=== PATIENT | female | born 1955 | race American Indian/Alaskan Native ===

== ENCOUNTER 2018-10-03 08:20 | Emergency (ER) | payer SELFPAY ==
--- NOTE | 2018-10-03 10:10 | Emergency Department Report ---
ED General Adult HPI - General Chief complaint: Skin Rash Stated complaint: PAIN IN BACK/SHOULDERS/ANKLES Time Seen by Provider: 10/03/18 09:55 Source: patient Mode of arrival: Ambulatory Limitations: No Limitations - History of Present Illness Initial comments: Patient is 63 years old female with history of psoriasis. Patient presented to the ER complaining of generalized joint pain for the last 2-3 days. Patient stated that she is not on any medication now because he does not have a primary care physician and because she does not have insurance. Patient denied any fever, chest pain, shortness of breath, nausea or vomiting. She also denied any headache, neck pain, weakness numbness or tingling sensation. - Related Data Allergies Allergy/AdvReac Type Severity Reaction Status Date / Time No Known Allergies Allergy Unverified 10/03/18 08:30 ED Review of Systems ROS: Stated complaint: PAIN IN BACK/SHOULDERS/ANKLES Other details as noted in HPI Comment: All other systems reviewed and negative Constitutional: denies: chills, fever Respiratory: denies: cough, orthopnea, shortness of breath, SOB with exertion, SOB at rest, wheezing Cardiovascular: denies: chest pain, palpitations Gastrointestinal: denies: abdominal pain, nausea, vomiting, diarrhea, constipation, hematemesis, melena, hematochezia Genitourinary: denies: urgency, dysuria, frequency, hematuria, discharge, abnormal menses Musculoskeletal: arthralgia Neurological: denies: headache, weakness, numbness, paresthesias, confusion, abnormal gait ED Past Medical Hx - Past Medical History Previous Medical History?: Yes Hx Psychiatric Treatment: Yes (anxiety) Additional medical history: Hepatitis C. Psoriasis - Surgical History Past Surgical History?: No - Social History Smoking Status: Never Smoker Substance Use Type: None ED Physical Exam - General Limitations: No Limitations General appearance: alert, in no apparent distress - Head Head exam: Present: atraumatic, normocephalic, normal inspection - Eye Eye exam: Present: normal appearance - ENT ENT exam: Present: normal exam, normal orophraynx, mucous membranes moist - Neck Neck exam: Present: normal inspection, full ROM. Absent: tenderness, meningismus, lymphadenopathy, thyromegaly - Respiratory Respiratory exam: Present: normal lung sounds bilaterally, prolonged expiratory. Absent: respiratory distress, wheezes, rales, rhonchi, stridor, chest wall tenderness, accessory muscle use, decreased breath sounds - Cardiovascular Cardiovascular Exam: Present: regular rate, normal rhythm, normal heart sounds - GI/Abdominal GI/Abdominal exam: Present: soft, normal bowel sounds. Absent: distended, tenderness, guarding, rebound, rigid, organomegaly, mass, bruit, pulsatile mass, hernia - Extremities Exam Extremities exam: Present: normal inspection, full ROM, normal capillary refill - Back Exam Back exam: Present: normal inspection - Neurological Exam Neurological exam: Present: alert, oriented X3, CN II-XII intact, normal gait, reflexes normal - Skin Skin exam: Present: warm, intact, rash ED Course Vital Signs 10/03/18 08:26 Temperature 97.5 F L Pulse Rate 74 Respiratory 20 Rate Blood Pressure 162/108 O2 Sat by Pulse 100 Oximetry Critical care attestation.: If time is entered above; I have spent that time in minutes in the direct care of this critically ill patient, excluding procedure time. ED Disposition Clinical Impression: Acute arthritis, Psoriasis Disposition: - TO HOME OR SELFCARE Is pt being admited?: No Condition: Stable Instructions: Psoriasis (ED), Arthralgia (ED) Referrals: [facility] [Provider Group] - 3-5 Days
[2018-10-03] MEDS ORDERED: TORADOL IM ONE (10:12)
[2018-10-03 10:35] VITALS: BP 131/75
== END 2018-10-03 10:33 | disposition home or self-care (01) ==
LOC: ED 08:20
DX: L40.9 Psoriasis, unspecified (principal); M19.90 Unspecified osteoarthritis, unspecified site; F41.9 Anxiety disorder, unspecified
CPT/HCPCS: 96372; 99282; J1885

== ENCOUNTER 2019-04-22 05:48 | Observation (INO) | payer SELFPAY ==
[2019-04-22] MEDS ORDERED: CATAPRES PO ONE (06:42)
[2019-04-22] MEDS ORDERED: NITRO-BID 2% TP ONE (06:42)
[2019-04-22] MEDS ORDERED: ASPIRIN PO ONE (06:42)
[2019-04-22 06:45] LABS: Basophils % (Auto) 0.8 % (0.0-1.8); Eosinophils # (Auto) 0.2 K/mm3 (0.0-0.4); Eosinophils % (Auto) 4.8 % (0.0-4.3); Hematocrit 40.4 % (30.3-42.9); Hemoglobin 13.3 gm/dl (10.1-14.3); Lymphocytes # (Auto) 2.3 K/mm3 (1.2-5.4); Lymphocytes % (Auto) 48.6 % (13.4-35.0); Mean Corpuscular HGB Conc 33 % (30-34); Mean Corpuscular Volume 81 fl (79-97); Monocytes # (Auto) 0.5 K/mm3 (0.0-0.8); Monocytes % (Auto) 10.8 % (0.0-7.3); Platelet Count 254 K/mm3 (140-440); Red Cell Distribution Width 13.3 % (13.2-15.2)
--- NOTE | 2019-04-22 06:47 | Emergency Department Report ---
HPI - General Chief Complaint: Dyspnea/Respdistress Time Seen by Provider: 04/22/19 06:34 - HPI HPI: Room 22 The patient is a 64-year-old female presenting with a chief complaint of chest discomfort. The patient states this morning at 03:00 she is awake and at rest when she began feeling dizzy A [place]o palpitations and left-sided chest discomfort described as a dull pressure that was intermittent in nature. Patient states she exhibited nausea/vomiting and shortness of breath with her chest discomfort but denies diaphoresis. The patient states she's been out of her blood pressure medication for approximately 3 weeks. The patient states she's never had a stress test or cardiac catheterization Location: [See above] Duration: [See above] Quality: [See above] Severity: [See above] Modifying factors: [see above] Context: [see above] Mode of transportation: [not driving] ED Past Medical Hx - Past Medical History Previous Medical History?: Yes Hx Hypertension: Yes Hx Diabetes: Yes Hx Psychiatric Treatment: Yes (anxiety) Additional medical history: Hepatitis C. Psoriasis - Surgical History Past Surgical History?: No - Family History Family history: no significant - Social History Smoking Status: Former Smoker (none 10 years) Substance Use Type: None (denies illicit drug use) - Medications Home Medications: Home Medications Medication Instructions Recorded Confirmed Last Taken Type Ondansetron [Zofran Odt] 4 mg PO Q8HR PRN #14 tab.rapdis 10/03/18 Unknown Rx Prednisone [predniSONE 10 mg 10 mg PO .TAPER #1 tab.ds.pk 10/03/18 Unknown Rx (6-Day Pack, 21 Tabs)] traMADol [Ultram 50 MG tab] 50 mg PO Q4HR PRN #14 tablet 10/03/18 Unknown Rx ED Review of Systems ROS: Stated complaint: SOB, NAUSEA, RAPID HEARTBEAT Other details as noted in HPI Constitutional: denies: diaphoresis Eyes: denies: eye pain ENT: denies: throat pain Respiratory: shortness of breath Cardiovascular: chest pain, palpitations Endocrine: no symptoms reported Gastrointestinal: nausea, vomiting Genitourinary: denies: dysuria Musculoskeletal: denies: back pain Neurological: denies: headache Physical Exam - Physical Exam Vital Signs: Vital Signs 04/22/19 06:02 Temperature 97.7 F Pulse Rate 83 Respiratory 18 Rate Blood Pressure 190/101 O2 Sat by Pulse 100 Oximetry Physical Exam: GENERAL: The patient is well-developed well-nourished female lying on stretcher not appearing to be in acute distress. [] HEENT: Normocephalic. Atraumatic. Extraocular motions are intact. Patient has moist mucous membranes. NECK: Supple. Trachea midline CHEST/LUNGS: Clear to auscultation. There is no respiratory distress noted. HEART/CARDIOVASCULAR: Regular. There is no tachycardia. There is no gallop rub or murmur. ABDOMEN: Abdomen is soft, nontender. Patient has normal bowel sounds. There is no abdominal distention. SKIN: There is no rash. There is no edema. There is no diaphoresis. NEURO: The patient is awake, alert, and oriented. The patient is cooperative. The patient has normal speech MUSCULOSKELETAL: There is no evidence of acute injury. ED Course Vital Signs 04/22/19 06:02 Temperature 97.7 F Pulse Rate 83 Respiratory 18 Rate Blood Pressure 190/101 O2 Sat by Pulse 100 Oximetry ED Medical Decision Making - Lab Data Result diagrams: 04/22/19 06:29 04/22/19 06:29 Laboratory Tests 04/22/19 04/22/19 04/22/19 06:29 06:29 06:37 WBC 4.7 RBC 5.00 Hgb 13.3 Hct 40.4 MCV 81 MCH 27 L MCHC 33 RDW 13.3 Plt Count 254 Lymph % (Auto) 48.6 H Dixon % (Auto) 10.8 H Eos % (Auto) 4.8 H Baso % (Auto) 0.8 Lymph # 2.3 Dixon # 0.5 Eos # 0.2 Baso # 0.0 Seg Neutrophils % 35.0 L Seg Neutrophils # 1.6 L VBG pH 7.391 Sodium 138 Potassium 3.5 L Chloride 102.0 Carbon Dioxide 27 Anion Gap 13 BUN 12 Creatinine 0.6 L Estimated GFR > 60 BUN/Creatinine Ratio 20 Glucose 104 H Calcium 9.6 Troponin T < 0.010 - EKG Data -: EKG Interpreted by Me EKG shows normal: sinus rhythm Rate: normal - EKG Data When compared to previous EKG there are: previous EKG unavailable Interpretation: nonspecific ST-T wave camron (T-wave inversion in lead V2, flattened T-wave in lead aVL) - Radiology Data Radiology results: report reviewed (chest x-ray), image reviewed (chest x-ray) interpreted by me: Chest x-ray-no focal infiltrates, no pneumothorax [facility] [address] [place] [address] XRay Report Signed Patient: JACEK RYAN MR#: [id number] : 1954 Acct:[id number] Age/Sex: 64 / F ADM Date: 04/22/19 Loc: ED Attending Dr: Ordering Physician: SINDHU OLGUIN MD Date of Service: 04/22/19 Procedure(s): XR chest 1V ap Accession Number(s): [id number] cc: SINDHU OLGUIN MD Fluoro Time In Minutes: CHEST 1 VIEW INDICATION / CLINICAL INFORMATION: Chest Pain. COMPARISON: None available. FINDINGS: SUPPORT DEVICES: None. HEART / MEDIASTINUM: No significant abnormality. LUNGS / PLEURA: No significant pulmonary or pleural abnormality. No pneumothorax. ADDITIONAL FINDINGS: No significant additional findings. IMPRESSION: 1. No acute findings. Signer Name: Corey Silveira MD Signed: 04/22/2019 6:54 AM Workstation Name: [id number] Transcribed By: ARI Dictated By: Corey Silveira MD Electronically Authenticated By: Corey Silveira MD Signed Date/Time: 04/22/19653 DD/ 3 TD/TT: - Differential Diagnosis ACS, pericarditis, GERD, dysrhythmia Critical care attestation.: If time is entered above; I have spent that time in minutes in the direct care of this critically ill patient, excluding procedure time. ED Disposition Clinical Impression: Chest pain Disposition: -09 OP ADMIT IP TO THIS HOSP Is pt being admited?: Yes Does the pt Need Aspirin: Yes Condition: Fair Instructions: Chest Pain (ED) Time of Disposition: 07:12 (hospitalist paged)
--- NOTE | 2019-04-22 06:59 | XRay Report ---
CHEST 1 VIEW INDICATION / CLINICAL INFORMATION: Chest Pain. COMPARISON: None available. FINDINGS: SUPPORT DEVICES: None. HEART / MEDIASTINUM: No significant abnormality. LUNGS / PLEURA: No significant pulmonary or pleural abnormality. No pneumothorax. ADDITIONAL FINDINGS: No significant additional findings. IMPRESSION: 1. No acute findings. Signer Name: Corey Silveira MD Signed: 04/22/2019 6:54 AM Workstation Name: [id number]
[2019-04-22 07:07] LABS: BUN/Creatinine Ratio 20; Blood Urea Nitrogen 12 mg/dL (7-17); Calcium 9.6 mg/dL (8.4-10.2); Hemolysis Index 3
[2019-04-22 07:24] LABS: Free T4 (Free Thyroxine) 1.1 ng/dL (0.76-1.46)
[2019-04-22] MEDS ORDERED: APRESOLINE IV PRN (08:06)
[2019-04-22] MEDS ORDERED: LEXISCAN IV ONE ×2 (08:12→08:49)
[2019-04-22 10:57] VITALS: BP 122/86
--- NOTE | 2019-04-22 11:20 | History and Physical Report ---
History of Present Illness Date of examination: 04/22/19 Date of admission: 04/22/19 08:44 Chief complaint: Chest pain Medications and Allergies Allergies Allergy/AdvReac Type Severity Reaction Status Date / Time No Known Allergies Allergy Unverified 10/03/18 08:30 Home Medications Medication Instructions Recorded Confirmed Last Taken Type Lisinopril [Zestril TAB] 5 mg PO QDAY #30 tablet 04/22/19 Unknown Rx amLODIPine [Norvasc] 5 mg PO DAILY #30 tab 04/22/19 Unknown Rx Active Meds: Active Medications Hydralazine HCl (Apresoline) 10 mg IV Q4H PRN PRN Reason: SBP>170 or DBP>110 Exam - Constitutional Vitals: Temp Pulse Resp BP Pulse Ox 97.7 F 63 15 122/86 99 04/22/19 06:02 04/22/19 08:15 04/22/19 08:15 04/22/19 10:11 04/22/19 08:15 Results - Labs CBC & Chem 7: 04/22/19 06:29 04/22/19 06:29 Labs: Abnormal lab results 04/22/19 04/22/19 Range/Units 06:29 06:29 MCH 27 L (28-32) pg Lymph % (Auto) 48.6 H (13.4-35.0) % Pettis % (Auto) 10.8 H (0.0-7.3) % Eos % (Auto) 4.8 H (0.0-4.3) % Seg Neutrophils % 35.0 L (40.0-70.0) % Seg Neutrophils # 1.6 L (1.8-7.7) K/mm3 Potassium 3.5 L (3.6-5.0) mmol/L Creatinine 0.6 L (0.7-1.2) mg/dL Glucose 104 H (65-100) mg/dL
--- NOTE | 2019-04-22 13:38 | Treadmill Report ---
NUCLEAR STRESS TEST REPORT The patient is brought to the Cardiology lab and a nuclear stress test is performed following Lexiscan injection. The patient tolerated Lexiscan stress test well with no significant angina, arrhythmias or ischemia. Post-stress images reveal homogeneous distribution of the isotope with no reversibility during rest. Accompanying gated study shows good systolic function with no wall motion abnormalities. Ejection fraction is calculated to be 68%. IMPRESSION: 1. Nuclear stress test is noted to be normal with no significant ischemia and normal left ventricular systolic function. 2. Suggest clinical correlation. JOB# [id number] KBM/NTS
--- NOTE | 2019-04-22 14:24 | Discharge Summary ---
Providers - Providers Date of Admission: 04/22/19 08:44 Date of discharge: 04/22/19 Attending physician: FELICIANO PRASAD Primary care physician: [facility] MD GONSALO Hospitalization Condition: Fair Disposition: DC-01 TO HOME OR SELFCARE Core Measure Documentation - Palliative Care Palliative Care/ Comfort Measures: Not Applicable - Core Measures Any of the following diagnoses?: none Exam - Constitutional Vitals: Temp Pulse Resp BP Pulse Ox 97.7 F 63 15 122/86 99 04/22/19 06:02 04/22/19 08:15 04/22/19 08:15 04/22/19 10:11 04/22/19 10:00 Plan Activity: no restrictions Diet: low fat, low cholesterol, low salt Additional Instructions: 1.Follow up with PCP or [facility] in 1 week Follow up with: GONSALO [facility] MD KARLO [Primary Care Provider] - 7 Days Prescriptions: Lisinopril [Zestril TAB] 5 mg PO QDAY #30 tablet
== END 2019-04-22 17:45 | disposition home or self-care (01) ==
LOC: ED 05:48 → 4A 08:44
PROVIDERS: ADMIT Internal Medicine; ATTEND Internal Medicine
DX: R07.89 Other chest pain (principal); F41.9 Anxiety disorder, unspecified; I10 Essential (primary) hypertension; E11.9 Type 2 diabetes mellitus without complications; Z86.19 Personal history of other infectious and parasitic diseases; Z79.899 Other long term (current) drug therapy
CPT/HCPCS: 36415; 71045; 78452; 80048; 82805; 83735; 84439; 84443; 84484; 85025; 93005; 93010; 93017; 99284; A9502; G0378; J2785

== ENCOUNTER 2020-08-17 15:10 | Emergency (ER) | payer SELFPAY ==
--- NOTE | 2020-08-17 15:38 | Emergency Department Report ---
ED Chest Pain HPI - General Chief Complaint: High BP Stated Complaint: HYPERTENSION Time Seen by Provider: 08/17/20 15:36 Source: patient Mode of arrival: Ambulatory Limitations: No Limitations - History of Present Illness Initial Comments: This is a 65-year-old female states that she takes losartan for her blood pressure. She states the dose has been recently increased. She states she took it this morning. She describes a mild and vague headache which is "how I know when my blood pressure is up". She also stated that she had minimal upper left pectoral chest pain. She states her left arm feels a little different than her right arm. She has not had any nausea vomiting or sweating. She does not complain of shortness of breath. She states that she had a stress test in 2019 which was negative. The nuclear perfusion study from the following admission 2019 here was negative. Patient is 64 yo with hypertension, diabetes, Hepatitis C and psoriasis. She presented with chest pain, nausea, vomiting,dizziness. She was seen and evaluated in the ED. Initial Troponin was normal. She was placed on Observation to rule out acute coronary syndrome. Stress test done later same day was negative. Patient is therefore discharged home. Chest pain is noncardiac and likely due to GERD. Disposition: DC-01 TO HOME OR SELFCARE - Discharge Diagnoses (1) GERD (gastroesophageal reflux disease) Status: Acute (2) HTN (hypertension) Status: Acute (3) Diabetes mellitus type 2 in nonobese Status: Acute (4) Hepatitis C Status: Acute (5) Chest pain Status: Acute MD Complaint: chest pain -: minutes(s) Pain Location: left chest Pain Radiation: none Severity: mild Quality: other (Could not describe) Consistency: now resolved Improves With: nothing Worsens With: nothing Context: other (Hypertension) re: denies: nausea, vomting, diaphoresis, dyspnea, sense of impending doom Other Symptoms: denies: cough, fever, syncope, rash, acid taste in mouth, leg swelling Treatments Prior to Arrival: none - Related Data Previous Rx's Medication Instructions Recorded Last Taken Type amLODIPine [Norvasc] 5 mg PO DAILY #30 tab 04/22/19 Unknown Rx lisinopriL [Zestril TAB] 5 mg PO QDAY #30 tablet 04/22/19 Unknown Rx labetaloL [Labetalol 200mg TAB] 200 mg PO BID #60 tablet 08/17/20 Unknown Rx Allergies Allergy/AdvReac Type Severity Reaction Status Date / Time No Known Allergies Allergy Unverified 10/03/18 08:30 Heart Score - HEART Score History: Slightly suspicious EKG: Non-specific Age: 45-65 Risk factors: 1-2 risk factors Troponin: < normal limit HEART Score: 3 - Critical Actions Critical Actions: 0-3 pts:0.9-1.7%risk of adverse cardiac event.Candidate for discharge ED Review of Systems ROS: Stated complaint: HYPERTENSION Other details as noted in HPI Constitutional: denies: chills, fever Eyes: denies: eye pain, eye discharge, vision change ENT: denies: ear pain, throat pain Respiratory: denies: cough, shortness of breath, wheezing Cardiovascular: chest pain. denies: palpitations Endocrine: no symptoms reported Gastrointestinal: denies: abdominal pain, nausea, diarrhea Genitourinary: denies: urgency, dysuria, discharge Musculoskeletal: denies: back pain, joint swelling, arthralgia Skin: denies: rash, lesions Neurological: headache. denies: weakness, paresthesias Psychiatric: denies: anxiety, depression Hematological/Lymphatic: denies: easy bleeding, easy bruising ED Past Medical Hx - Past Medical History Hx Hypertension: Yes Hx Diabetes: Yes Hx Psychiatric Treatment: Yes (anxiety) Hx HIV: No Additional medical history: Hepatitis C. Psoriasis - Social History Smoking Status: Never Smoker - Medications Home Medications: Home Medications Medication Instructions Recorded Confirmed Last Taken Type amLODIPine [Norvasc] 5 mg PO DAILY #30 tab 04/22/19 Unknown Rx lisinopriL [Zestril TAB] 5 mg PO QDAY #30 tablet 04/22/19 Unknown Rx labetaloL [Labetalol 200mg TAB] 200 mg PO BID #60 tablet 08/17/20 Unknown Rx ED Physical Exam - General Limitations: No Limitations General appearance: alert, in no apparent distress - Head Head exam: Present: atraumatic, normocephalic - Eye Eye exam: Present: normal appearance. Absent: scleral icterus - ENT ENT exam: Present: mucous membranes moist - Neck Neck exam: Present: normal inspection - Respiratory Respiratory exam: Present: normal lung sounds bilaterally. Absent: respiratory distress - Cardiovascular Cardiovascular Exam: Present: regular rate, normal rhythm. Absent: systolic murmur, diastolic murmur, rubs, gallop - GI/Abdominal GI/Abdominal exam: Present: soft, normal bowel sounds. Absent: distended, tenderness, guarding, rebound - Extremities Exam Extremities exam: Present: normal inspection. Absent: pedal edema, calf tenderness - Back Exam Back exam: Present: normal inspection - Neurological Exam Neurological exam: Present: alert, oriented X3, CN II-XII intact. Absent: motor sensory deficit - Psychiatric Psychiatric exam: Present: normal affect, normal mood - Skin Skin exam: Present: warm, dry, intact, normal color. Absent: rash ED Course Vital Signs 08/17/20 08/17/20 08/17/20 15:16 15:46 16:00 Temperature 97.8 F Pulse Rate 78 71 68 Respiratory 14 16 14 Rate Blood Pressure 220/119 192/102 198/102 O2 Sat by Pulse 97 97 98 Oximetry 08/17/20 08/17/20 08/17/20 16:14 16:16 16:46 Temperature Pulse Rate 68 64 61 Respiratory 12 11 L Rate Blood Pressure 198/102 198/102 186/100 O2 Sat by Pulse 98 97 Oximetry 08/17/20 08/17/20 08/17/20 17:00 17:16 17:30 Temperature Pulse Rate 61 64 62 Respiratory 17 13 18 Rate Blood Pressure 198/102 191/96 191/96 O2 Sat by Pulse 97 98 98 Oximetry 08/17/20 08/17/20 08/17/20 17:46 18:00 18:16 Temperature Pulse Rate 69 63 66 Respiratory 17 15 23 Rate Blood Pressure 191/96 186/100 186/100 O2 Sat by Pulse 97 98 98 Oximetry 08/17/20 18:30 Temperature Pulse Rate 71 Respiratory 15 Rate Blood Pressure 187/104 O2 Sat by Pulse 100 Oximetry - Reevaluation(s) Reevaluation #1: Given IV labetalol. 08/17/20 15:54 ERICK score - Erick Score Age > 65: (0) No Aspirin use within the Past 7 Days: (0) No 3 or more CAD Risk Factors: (0) No 2 or more Angina events in past 24 hrs: (0) No Known CAD with more than 50% Stenosis: (0) No Elevated Cardiac Markers: (0) No ST Deviation Greater than 0.5mm: (0) No ERICK Score: 0 ED Medical Decision Making - Lab Data Result diagrams: 08/17/20 15:47 08/17/20 15:47 Critical care attestation.: If time is entered above; I have spent that time in minutes in the direct care of this critically ill patient, excluding procedure time. ED Disposition Clinical Impression: Accelerated hypertension Disposition: DC-01 TO HOME OR SELFCARE Is pt being admited?: No Does the pt Need Aspirin: No Condition: Stable Instructions: Hypertension (ED) Additional Instructions: Follow your blood pressure frequently. New medicine as directed. Continue your old medicine. Return any acute change or problem. Prescriptions: labetaloL [Labetalol 200mg TAB] 200 mg PO BID #60 tablet Referrals: [facility] [Provider Group] - 3-5 Days PRIMARY CARE, [Primary Care Provider] - 3-5 Days Time of Disposition: 19:16
[2020-08-17] MEDS ORDERED: ASPIRIN 325 MG TAB PO ONE (15:39)
[2020-08-17 16:08] LABS: Basophils % (Auto) 0.9 % (0.0-1.8); Eosinophils # (Auto) 0.1 K/mm3 (0.0-0.4); Eosinophils % (Auto) 3.2 % (0.0-4.3); Hematocrit 44.9 % (30.3-42.9); Hemoglobin 14.5 gm/dl (10.1-14.3); Lymphocytes # (Auto) 1.7 K/mm3 (1.2-5.4); Lymphocytes % (Auto) 46.3 % (13.4-35.0); Mean Corpuscular HGB Conc 32 % (30-34); Mean Corpuscular Volume 82 fl (79-97); Monocytes # (Auto) 0.4 K/mm3 (0.0-0.8); Monocytes % (Auto) 11.7 % (0.0-7.3); Platelet Count 208 K/mm3 (140-440); Red Blood Count 5.47 M/mm3 (3.65-5.03); Red Cell Distribution Width 13.7 % (13.2-15.2)
[2020-08-17 16:16] LABS: INR 0.94 (0.87-1.13)
[2020-08-17 16:17] LABS: Partial Thromboplastin Time 28.4 Sec. (24.2-36.6)
[2020-08-17 16:22] LABS: Blood Urea Nitrogen 10 mg/dL (7-17); Calcium 9.6 mg/dL (8.4-10.2); Creatine Kinase MB 2.5 ng/mL (0.0-4.0); Hemolysis Index 7
[2020-08-17 16:24] LABS: Albumin 4.1 g/dL (3.9-5); Bilirubin,Direct 0.6 mg/dL (0-0.2)
[2020-08-17 16:28] LABS: BUN/Creatinine Ratio 17
--- NOTE | 2020-08-17 17:17 | XRay Report ---
XR chest 1V ap INDICATION / CLINICAL INFORMATION: Chest Pain. COMPARISON: None available. FINDINGS: SUPPORT DEVICES: None. HEART /PULMONARY VASCULATURE: No significant abnormality. LUNGS / PLEURA: No significant pulmonary or pleural abnormality. No pneumothorax. ADDITIONAL FINDINGS: No significant additional findings. IMPRESSION: 1. No acute findings. Signer Name: Corey Marshall MD Signed: 08/17/2020 5:13 PM Workstation Name: [id number]
[2020-08-17] MEDS ORDERED: ENALAPRILAT 2.5 MG/2 ML INJ IV ONE (18:36)
[2020-08-17 18:40] LABS: Bilirubin,Urine NEG (Negative); Blood,Urine NEG (Negative); Color,Urine Straw (Yellow); Protein,Urine <15 mg/dL mg/dL (Negative); Urobilinogen,Urine < 2.0 mg/dL (<2.0); WBC,Urine < 1.0 /HPF (0.0-6.0)
[2020-08-17 18:45] LABS: Amphetamine Screen,Urine Negative; Benzodiazepines Screen,Urine Negative; Cannabinoid Screen,Urine Negative; Cocaine Screen,Urine Negative; Methadone Screen,Urine Negative; Opiate Screen,Urine Negative
[2020-08-17 19:49] VITALS: BP 196/102
== END 2020-08-17 19:45 | disposition home or self-care (01) ==
LOC: ED 15:10
DX: I10 Essential (primary) hypertension (principal); E11.9 Type 2 diabetes mellitus without complications; F41.9 Anxiety disorder, unspecified; Z79.899 Other long term (current) drug therapy
CPT/HCPCS: 36415; 71045; 80048; 80076; 80307; 81001; 82550; 82553; 83735; 83880; 84484; 85025; 85610; 85730; 93005; 96374; 96375; 96376